=== PATIENT | male | born 1965 | race Two or more races ===

== ENCOUNTER 2023-10-27 06:41 | Day surgery (SDC) | payer OTHER ==
[2023-10-27] MEDS ORDERED: CEFAZOLIN SODIUM 1,000 MG VIAL IV SCH (12:15)
[2023-10-27] MEDS ORDERED: SUGAMMADEX SODIUM 200 MG/2 ML VIAL IV ONE (13:00)
== END 2023-10-27 17:05 | disposition home or self-care (01) ==
LOC: CIR.AMB 06:41
PROVIDERS: ATTEND Surgery
DX: K42.9 Umbilical hernia without obstruction or gangrene (principal)